=== PATIENT | male | born 1985 | race Caucasian/White ===

== ENCOUNTER 2020-04-04 19:02 | Emergency (ER) | payer BC ==
[2020-04-04] MEDS ORDERED: Ketorolac 30 MG/ML SDV IVPUSH ONE (19:28)
[2020-04-04] MEDS ORDERED: Sodium Chloride 0.9% 10 ML Syringe FLUSH PRN (19:28)
--- NOTE | 2020-04-04 20:19 | CR ---
Right elbow: 4 views of the right elbow were obtained. Comparison: No previous elbow study. Small spur is noted off the olecranon process. Joint spaces are preserved. No joint effusion is appreciated. No acute fracture, dislocation or other bony abnormality is appreciated. Subcutaneous edema is noted. Impression: 1. Findings as noted above. 2. No acute bony abnormality is appreciated. Diagnostic code #2 This report was dictated in MDT
[2020-04-04] MEDS ORDERED: ceFAZolin 2 GM in Premix Bag 1 BAG IV ONE (20:36)
--- NOTE | 2020-04-04 20:47 | EDM.PDOC ---
ED HPI GENERAL MEDICAL PROBLEM - General Chief Complaint: Upper Extremity Injury/Pain Stated Complaint: RIGHT ARM SWELLING AND PAIN Time Seen by Provider: 04/04/20 19:08 Source of Information: Reports: Patient History Limitations: Reports: No Limitations - History of Present Illness INITIAL COMMENTS - FREE TEXT/NARRATIVE: Patient is a 35-year-old male who presents to the emergency department with complaints of redness, warmth, and swelling to his right arm. He states that the pain and redness initially presented in the area of his right medial elbow yesterday. Since that time it has progressively been getting worse and is now in his forearm. He denies any known abrasions or lacerations, however states he was out fishing recently. He has had no fever, chills, nausea, or vomiting, patient is not diabetic. He has taken nothing for pain. He does not have a primary care provider that he sees in town here. Right Arm Pain Score (Numeric/FACES): 10 - Related Data Allergies Allergy/AdvReac Type Severity Reaction Status Date / Time No Known Allergies Allergy Verified 04/04/20 19:17 Home Meds: Home Meds Aspirin [Aspirin EC] 81 mg PO DAILY 04/04/20 [History] Lisinopril/Hydrochlorothiazide [Lisinopril-HCTZ 10-12.5 MG] 1 tab PO DAILY 04/04 [History] cephALEXin [Keflex] 500 mg PO Q6H 5 Days #20 cap 04/04/20 [Rx] Past Medical History Cardiovascular History: Reports: Afib, Other (See Below) Other Cardiovascular History: CHF Musculoskeletal History: Reports: Fracture Other Musculoskeletal History: Right FA Social & Family History - Tobacco Use Smoking Status *Q: Former Smoker Used Tobacco, but Quit: Yes Month/Year Tobacco Last Used: 4 years - Caffeine Use Caffeine Use: Reports: Coffee, Energy Drinks, Soda, Tea - Recreational Drug Use Recreational Drug Use: Yes Recreational Drug Type: Reports: Cocaine, Marijuana/Hashish, Methamphetamine Recreational Drug Last Use: 5 years ago Review of Systems - Review of Systems Review Of Systems: See Below Constitutional: Reports: No Symptoms. Denies: Chills, Diaphoresis, Fever Eyes: Reports: No Symptoms Ears: Reports: No Symptoms Nose: Reports: No Symptoms Mouth/Throat: Reports: No Symptoms Respiratory: Reports: No Symptoms Cardiovascular: Reports: No Symptoms GI/Abdominal: Reports: No Symptoms Genitourinary: Reports: No Symptoms Musculoskeletal: Reports: No Symptoms Skin: Reports: Erythema, Other (edema) Neurological: Reports: No Symptoms Psychiatric: Reports: No Symptoms ED EXAM, GENERAL - Physical Exam Exam: See Below Exam Limited By: No Limitations General Appearance: Alert, WD/WN, No Apparent Distress Respiratory/Chest: No Respiratory Distress, Lungs Clear, Normal Breath Sounds, No Accessory Muscle Use, Chest Non-Tender Cardiovascular: Normal Peripheral Pulses, Regular Rate, Rhythm, No Edema, No Gallop, No JVD, No Murmur, No Rub Extremities: Normal Inspection, Normal Range of Motion, Non-Tender, Normal Capillary Refill, No Pedal Edema Neurological: Alert, Oriented, CN II-XII Intact, Normal Cognition, Normal Gait, Normal Reflexes, No Motor/Sensory Deficits Psychiatric: Normal Affect, Normal Mood Skin Exam: Erythema (from aprox 4 cm proximal of the right posterior elbow to mid-forearm.), Increased Warmth Course - Vital Signs Last Recorded V/S: Last Vital Signs Temp 99 F 04/04/20 19:13 Pulse 88 04/04/20 19:13 Resp 20 04/04/20 19:13 BP 139/103 H 04/04/20 19:13 Pulse Ox 100 04/04/20 19:13 - Orders/Labs/Meds Orders: Active Orders 24 hr Category Date Time Status Peripheral IV Care [RC] . DIRECTED Care 04/04/20 19:28 Active CULTURE BLOOD [BC] Stat Lab 04/04/20 19:48 Received CULTURE BLOOD [BC] Stat Lab 04/04/20 19:55 Received Sodium Chloride 0.9% [Saline Flush] Med 04/04/20 19:28 Active 10 ml FLUSH ASDIRECTED PRN ceFAZolin [Ancef] 2 gm Med 04/04/20 20:36 Active Premix Bag 1 bag IV ONETIME Blood Culture x2 Reflex Set [OM.PC] Stat Oth 04/04/20 19:33 Ordered Peripheral IV Insertion Adult [OM.PC] Stat Oth 04/04/20 19:28 Ordered Medication Orders Cefazolin Sodium/Dextrose 2 gm (/ Premix) 50 mls @ 100 mls/hr IV ONETIME ONE Stop: 04/04/20 21:05 Sodium Chloride (Saline Flush) 10 ml FLUSH ASDIRECTED PRN PRN Reason: Keep Vein Open Last Admin: 04/04/20 19:53 Dose: 10 ml Labs: Laboratory Tests 04/04/20 04/04/20 04/04/20 Range/Units 19:40 19:40 19:40 WBC 9.43 H (4.23-9.07) K/mm3 RBC 5.29 (4.63-6.08) M/mm3 Hgb 15.7 (13.7-17.5) gm/dl Hct 44.9 (40.1-51.0) % MCV 84.9 (79.0-92.2) fl MCH 29.7 (25.7-32.2) pg MCHC 35.0 (32.2-35.5) g/dl RDW Std Deviation 41.7 (35.1-43.9) fL Plt Count 240 (163-337) K/mm3 MPV 11.0 (9.4-12.3) fl Neut % (Auto) 68.7 H (34.0-67.9) % Lymph % (Auto) 21.4 L (21.8-53.1) % Traill % (Auto) 8.5 (5.3-12.2) % Eos % (Auto) 1.1 (0.8-7.0) Baso % (Auto) 0.2 (0.1-1.2) % Neut # (Auto) 6.48 H (1.78-5.38) K/mm3 Lymph # (Auto) 2.02 (1.32-3.57) K/mm3 [place]ill # (Auto) 0.80 (0.30-0.82) K/mm3 Eos # (Auto) 0.10 (0.04-0.54) K/mm3 Baso # (Auto) 0.02 (0.01-0.08) K/mm3 D-Dimer, Quantitative (0.19-0.50) mg/L Sodium 137 (136-145) mEq/L Potassium 3.3 L (3.5-5.1) mEq/L Chloride 102 (98-107) mEq/L Carbon Dioxide 27 (21-32) mEq/L Anion Gap 11.3 (5-15) BUN 18 (7-18) mg/dL Creatinine 1.1 (0.7-1.3) mg/dL Est Cr Clr Drug Dosing 109.89 mL/min Estimated GFR (MDRD) > 60 (>60) mL/min BUN/Creatinine Ratio 16.4 (14-18) Glucose 169 H (74-106) mg/dL Lactic Acid 1.7 (0.4-2.0) mmol/L Calcium 8.5 (8.5-10.1) mg/dL Total Bilirubin 0.7 (0.2-1.0) mg/dL AST 19 (15-37) U/L ALT 44 (16-63) U/L Alkaline Phosphatase 54 (46-116) U/L C-Reactive Protein 0.4 (<1.0) mg/dL Total Protein 7.1 (6.4-8.2) g/dl Albumin 3.5 (3.4-5.0) g/dl Globulin 3.6 gm/dL Albumin/Globulin Ratio 1.0 (1-2) /07/17 Range/Units 19:40 WBC (4.23-9.07) K/mm3 RBC (4.63-6.08) M/mm3 Hgb (13.7-17.5) gm/dl Hct (40.1-51.0) % MCV (79.0-92.2) fl MCH (25.7-32.2) pg MCHC (32.2-35.5) g/dl RDW Std Deviation (35.1-43.9) fL Plt Count (163-337) K/mm3 MPV (9.4-12.3) fl Neut % (Auto) (34.0-67.9) % Lymph % (Auto) (21.8-53.1) % [place]ill % (Auto) (5.3-12.2) % Eos % (Auto) (0.8-7.0) Baso % (Auto) (0.1-1.2) % Neut # (Auto) (1.78-5.38) K/mm3 Lymph # (Auto) (1.32-3.57) K/mm3 Traill # (Auto) (0.30-0.82) K/mm3 Eos # (Auto) (0.04-0.54) K/mm3 Baso # (Auto) (0.01-0.08) K/mm3 D-Dimer, Quantitative 0.34 (0.19-0.50) mg/L Sodium (136-145) mEq/L Potassium (3.5-5.1) mEq/L Chloride (98-107) mEq/L Carbon Dioxide (21-32) mEq/L Anion Gap (5-15) BUN (7-18) mg/dL Creatinine (0.7-1.3) mg/dL Est Cr Clr Drug Dosing mL/min Estimated GFR (MDRD) (>60) mL/min BUN/Creatinine Ratio (14-18) Glucose (74-106) mg/dL Lactic Acid (0.4-2.0) mmol/L Calcium (8.5-10.1) mg/dL Total Bilirubin (0.2-1.0) mg/dL AST (15-37) U/L ALT (16-63) U/L Alkaline Phosphatase (46-116) U/L C-Reactive Protein (<1.0) mg/dL Total Protein (6.4-8.2) g/dl Albumin (3.4-5.0) g/dl Globulin gm/dL Albumin/Globulin Ratio (1-2) Meds: Medications Generic Name Dose Route Start Last Admin Trade Name Freq PRN Reason Stop Dose Admin Cefazolin Sodium/Dextrose 2 gm 50 mls @ 100 mls/hr 04/04/20 20:36 / Premix IV 04/04/20 21:05 ONETIME ONE Sodium Chloride 10 ml 04/04/20 19:28 04/04/20 19:53 Saline Flush FLUSH 10 ml ASDIRECTED PRN Administration Keep Vein Open Discontinued Medications Generic Name Dose Route Start Last Admin Trade Name Freq PRN Reason Stop Dose Admin Ketorolac Tromethamine 30 mg 04/04/20 19:28 04/04/20 19:52 Toradol IVPUSH 04/04/20 19:29 30 mg ONETIME ONE Administration - Re-Assessments/Exams Free Text/Narrative Re-Assessment/Exam: On exam, patient has redness, warmth, and edema from proximal to the right elbow to the mid forearm. There is no defined area of induration to suggest bursitis. I have ordered CBC, CMP, CRP, lactic acid, blood cultures, and an x- ray of the elbow. I will give him Toradol IV for pain. 04/04/20 20:50 Blood work was grossly unremarkable. CRP was normal. Lactic acid was normal. D-dimer was negative. X-ray of the elbow did not show any effusions in the joint. Based on his exam and blood work, patient has a cellulitis of the right arm. I will give him a dose of IV cefezolin and at this time. He will discharge home with Keflex. Discussed with him that he should monitor it his symptoms and if they seem to be getting worse rather than better, he should return to the emergency department. Discharge instructions as documented. Departure - Departure Time of Disposition: 20:52 Disposition: Home, Self-Care 01 Condition: Good Clinical Impression: Cellulitis Qualifiers: Site of cellulitis: extremity Site of cellulitis of extremity: upper extremity Laterality: right Qualified Code(s): L03.113 - Cellulitis of right upper limb - Discharge Information *PRESCRIPTION DRUG MONITORING PROGRAM REVIEWED*: No *COPY OF PRESCRIPTION DRUG MONITORING REPORT IN PATIENT DONVOAN: No Prescriptions: cephALEXin [Keflex] 500 mg PO Q6H 5 Days #20 cap Instructions: Cellulitis, Adult Referrals: PCP,Not In Area [Primary Care Provider] - Additional Instructions: You were seen in the emergency department today for redness, swelling, and pain to your right arm. Your work-up included blood work and an x-ray of the elbow. Based on your exam and blood work, it is like that you are suffering from a cellulitis which is an infection of the skin. While in the emergency department you received a dose of IV antibiotics. A prescription for the antibiotic Keflex has been sent to [facility]. Take this medication as prescribed. You may use Tylenol or ibuprofen as needed for pain. Recommend that when at rest to elevate the arm to help with the swelling. You should begin to see significant improvement in your symptoms within the next 24 to 36 hours. If you find that your symptoms are worsening rather than improving or you develop onset of fever, chills, or vomiting, I would recommend that you return to the emergency department. Sepsis Event Note - Evaluation Sepsis Screening Result: No Definite Risk - Focused Exam Vital Signs: Vital Signs Temp Pulse Resp BP Pulse Ox 04/04/20 19:13 99 F 88 20 139/103 H 100 Date Exam was Performed: 04/04/20 Time Exam was Performed: 20:42 - My Orders Last 24 Hours: My Active Orders 04/04/20 19:28 Peripheral IV Care [RC] . DIRECTED Sodium Chloride 0.9% [Saline Flush] 10 ml FLUSH ASDIRECTED PRN Peripheral IV Insertion Adult [OM.PC] Stat 04/04/20 19:33 Blood Culture x2 Reflex Set [OM.PC] Stat 04/04/20 19:48 CULTURE BLOOD [BC] Stat 04/04/20 19:55 CULTURE BLOOD [BC] Stat 04/04/20 20:36 ceFAZolin [Ancef] 2 gm Premix Bag 1 bag IV ONETIME - Assessment/Plan Last 24 Hours: My Active Orders 04/04/20 19:28 Peripheral IV Care [RC] . DIRECTED Sodium Chloride 0.9% [Saline Flush] 10 ml FLUSH ASDIRECTED PRN Peripheral IV Insertion Adult [OM.PC] Stat 04/04/20 19:33 Blood Culture x2 Reflex Set [OM.PC] Stat 04/04/20 19:48 CULTURE BLOOD [BC] Stat 04/04/20 19:55 CULTURE BLOOD [BC] Stat 04/04/20 20:36 ceFAZolin [Ancef] 2 gm Premix Bag 1 bag IV ONETIME
== END 2020-04-04 21:15 | disposition home or self-care (01) ==
LOC: JD.ED 19:02
DX: L03.113 Cellulitis of right upper limb (principal); I48.91 Unspecified atrial fibrillation; I50.9 Heart failure, unspecified; Z87.891 Personal history of nicotine dependence; Z79.82 Long term (current) use of aspirin; Z79.899 Other long term (current) drug therapy
CPT/HCPCS: 36415; 73080; 80053; 83605; 85025; 85379; 86140; 87040; 96365; 96375; 99284; J0690; J1885

== ENCOUNTER 2020-05-10 11:57 | Emergency (ER) | payer BC ==
--- NOTE | 2020-05-10 12:30 | EDM.PDOC ---
ED HPI GENERAL MEDICAL PROBLEM - General Chief Complaint: Cardiovascular Problem Stated Complaint: HEART RACING Time Seen by Provider: 05/10/20 12:21 Source of Information: Reports: Patient, RN Notes Reviewed History Limitations: Reports: No Limitations - History of Present Illness INITIAL COMMENTS - FREE TEXT/NARRATIVE: Patient is a 35-year-old male who presents to the ED for the evaluation of his perceived palpitations. Patient notes that this is been present for the last 2 days. He states that the seem to worsen at night, when he lays down, he feels an overwhelming sense of anxiety, or impending doom. He states he took 2 Tylenol PM last night and this did not seem to knock him out like it normally does. He slept from 8 PM to 1:30 AM. Patient notes that he does have a history of atrial fibrillation, that they had to cardiovert, 5 years ago in [place], he was placed on metoprolol initially, but this was discontinued a few years ago, due to his heart rate being in the 40s. He is currently only taking lisinopril/hydrochlorothiazide, and aspirin. Patient's not had a diagnosis of anxiety, and was wondering if this could be either anxiety related or due to his atrial fibrillation. He denies any chest pain, cough/shortness of breath, fever/chills, or any other sick-like symptoms. Patient notes that he works on [employer], he does have a regular provider in his home state, however he is not set up with any sort of provider in this area. Patient states that he drinks 1 cup of coffee daily, and to 12 cans of soda, and drinks alcohol socially, but denies drug use, or tobacco use. - Related Data Allergies Allergy/AdvReac Type Severity Reaction Status Date / Time No Known Allergies Allergy Verified 05/10/20 12:24 Home Meds: Home Meds Aspirin [Aspirin EC] 81 mg PO DAILY 04/04/20 [History] Lisinopril/Hydrochlorothiazide [Lisinopril-HCTZ 10-12.5 MG] 1 tab PO DAILY 04/04 [History] LORazepam [Ativan] 1 mg PO TID PRN #15 tab 05/10/20 [Rx] Multivit-Minerals/FA/Lycopene [One Daily Men's Health Tablet] 1 tab PO DAILY [History] Past Medical History Cardiovascular History: Reports: Afib, Heart Failure, Hypertension Other Cardiovascular History: CHF Musculoskeletal History: Reports: Fracture Other Musculoskeletal History: Right FA - Past Surgical History Musculoskeletal Surgical History: Reports: Arthroscopic Knee, Shoulder Surgery Social & Family History - Tobacco Use Smoking Status *Q: Never Smoker - Caffeine Use Caffeine Use: Reports: Coffee (1 cup coffee/day), Energy Drinks, Soda (2 12 oz cans/day) - Alcohol Use Alcohol Use History: Yes Alcohol Use Frequency: Socially - Recreational Drug Use Recreational Drug Use: No ED ROS GENERAL - Review of Systems Review Of Systems: Comprehensive ROS is negative, except as noted in HPI. ED EXAM, GENERAL - Physical Exam Exam: See Below Exam Limited By: No Limitations General Appearance: Alert, WD/WN, No Apparent Distress Respiratory/Chest: No Respiratory Distress, Lungs Clear, Normal Breath Sounds, No Accessory Muscle Use, Chest Non-Tender Cardiovascular: Normal Peripheral Pulses, Regular Rate, Rhythm, No Murmur GI/Abdominal: Normal Bowel Sounds, Soft, Non-Tender, No Distention, No Mass Extremities: Normal Inspection, Normal Capillary Refill Neurological: Alert, Oriented, Normal Cognition, No Motor/Sensory Deficits Psychiatric: Normal Affect, Normal Mood Skin Exam: Warm, Dry, Intact, Normal Color, No Rash EKG INTERPRETATION EKG Date: 05/10/20 Time: 12:24 Rhythm: NSR Rate (Beats/Min): 67 [place]: LAD-Left [place] Deviation P-Wave: Present QRS: Normal ST-T: Normal QT: Normal Comparison: NA - No Prior EKG EKG Interpretation Comments: No obvious ischemia or acute ST changes noted, reviewed by myself and Dr. Emmanuel. Course - Vital Signs Last Recorded V/S: Last Vital Signs Temp 98.7 F 05/10/20 12:20 Pulse 69 05/10/20 12:20 Resp 10 L 05/10/20 12:20 BP 149/85 H 05/10/20 12:20 Pulse Ox 96 05/10/20 12:20 - Orders/Labs/Meds Orders: Active Orders 24 hr Category Date Time Status EKG Documentation Completion [RC] STAT Care 05/10/20 12:24 Active Labs: Laboratory Tests 05/10/20 Range/Units 13:15 Sodium 140 (136-145) mEq/L Potassium 3.8 (3.5-5.1) mEq/L Chloride 105 (98-107) mEq/L Carbon Dioxide 27 (21-32) mEq/L Anion Gap 11.8 (5-15) BUN 15 (7-18) mg/dL Creatinine 1.0 (0.7-1.3) mg/dL Est Cr Clr Drug Dosing 120.88 mL/min Estimated GFR (MDRD) > 60 (>60) mL/min BUN/Creatinine Ratio 15.0 (14-18) Glucose 126 H (74-106) mg/dL Calcium 9.0 (8.5-10.1) mg/dL Magnesium 2.0 (1.8-2.4) mg/dl Total Bilirubin 0.4 (0.2-1.0) mg/dL AST 27 (15-37) U/L ALT 54 (16-63) U/L Alkaline Phosphatase 54 (46-116) U/L Total Protein 7.3 (6.4-8.2) g/dl Albumin 3.5 (3.4-5.0) g/dl Globulin 3.8 gm/dL Albumin/Globulin Ratio 0.9 L (1-2) TSH 3rd Generation 1.850 (0.358-3.74) uIU/mL - Re-Assessments/Exams Free Text/Narrative Re-Assessment/Exam: 05/10/20 12:44 Patient presents to the ED for evaluation of his perceived palpitations. Atrial fibrillation is not appreciated on EKG, likely this could be due to anxiety. Nonetheless have ordered some baseline labs to rule out any other worrisome abnormalities. 05/10/20 13:57 Patient's labs are still in process, he would like to leave the ER at this time , as his ride cannot stay a whole lot longer. I do not suspect any lab abnormalities to show up, so I will discharge him home with general recommendations and a trial of Ativan. 05/10/20 14:06 Patient's laboratory evaluation has returned and is essentially within normal limits, no worrisome abnormalities noted. Patient was just walking out of the department, and I was able to tell him that there were no abnormalities. Departure - Departure Time of Disposition: 13:58 Disposition: Home, Self-Care 01 Condition: Good Clinical Impression: Palpitations with regular cardiac rhythm, Anxiety Prescriptions: LORazepam [Ativan] 1 mg PO TID PRN #15 tab PRN Reason: Anxiety Instructions: Living With Anxiety Referrals: PCP,None [Primary Care Provider] - Forms: ED Department Discharge Additional Instructions: You were evaluated in the ER today regarding your feelings of heart palpitations. Laboratory evaluation is still pending, you are being discharged before labs have resulted. If there should be any abnormalities, we will call you and discuss this with you for further management. You have been provided with a prescription for Ativan, 1 mg tablets at night, for anxiety related purposes. If you take the 1 mg tablet and notice that it is not taking effect, you may repeat with one more tablet half hour to 45 minutes later. Highly recommend you obtain a primary care provider, our clinic number , any family practice provider would be able to provide you with the services. This is to monitor your general health and well-being, while you are in this area for work. Please return to the ER at any time if symptoms should change or worsen. Sepsis Event Note (ED) - Evaluation Sepsis Screening Result: No Definite Risk - Focused Exam Vital Signs: Vital Signs Temp Pulse Resp BP Pulse Ox 05/10/20 12:20 98.7 F 69 10 L 149/85 H 96 - My Orders Last 24 Hours: My Active Orders 05/10/20 12:24 EKG Documentation Completion [RC] STAT - Assessment/Plan Last 24 Hours: My Active Orders 05/10/20 12:24 EKG Documentation Completion [RC] STAT
== END 2020-05-10 14:15 | disposition home or self-care (01) ==
LOC: JD.ED 11:57
DX: F41.9 Anxiety disorder, unspecified (principal); I48.91 Unspecified atrial fibrillation; I11.0 Hypertensive heart disease with heart failure; I50.9 Heart failure, unspecified; Z79.82 Long term (current) use of aspirin; Z79.899 Other long term (current) drug therapy
CPT/HCPCS: 36415; 80053; 83735; 84443; 93005; 93010; 99283; 99285-25